=== PATIENT | female | born 1950 | race Caucasian/White ===

== ENCOUNTER → 2017-04-01 | Outpatient (CLI) | payer MEDICARE, BC ==
--- NOTE | 2017-04-02 08:09 | XR ---
EXAMINATION TYPE: XR chest 2V DATE OF EXAM: 04/01/2017 9:30 AM COMPARISON: NONE HISTORY: Shortness of breath TECHNIQUE: Frontal and lateral views of the chest are obtained. FINDINGS: Scattered senescent parenchymal changes noted. Hyperinflation compatible with COPD. No evidence for infiltrate. No evidence for atelectasis. Heart size is stable. Mediastinal structures are stable and grossly unremarkable. No evidence for hilar prominence. Degenerative changes dorsal spine. IMPRESSION: 1. No evidence for acute pulmonary disease.
== END | disposition home or self-care (01) ==
LOC: RADXRYALE 09:17
PROVIDERS: ATTEND Internal Medicine
DX: R05 Cough (principal)
CPT/HCPCS: 71020

== ENCOUNTER → 2017-04-16 | Outpatient (CLI) | payer MEDICARE, BC ==
--- NOTE | 2017-04-16 13:32 | US ---
EXAMINATION TYPE: US abdomen complete DATE OF EXAM: 04/16/2017 8:14 AM COMPARISON: NONE CLINICAL HISTORY: R10.84 Generalized abdominal pain. Palpable superior umbilicus area that the patien t has had for over 10 years, 2012 MRI questioned possible lymph node EXAM MEASUREMENTS: Liver Length: 15.2 cm Gallbladder Wall: 0.2 cm CBD: 0.5 cm Spleen: 9.1 cm Right Kidney: 9.4 x 4.4 x 4.9 cm Left Kidney: 10.5 x 4.3 x 5.1 cm Pancreas: wnl Liver: wnl Gallbladder: wnl Evidence for sonographic Atkins's sign: no CBD: wnl Spleen: wnl Right Kidney: wnl Left Kidney: wnl Upper IVC: wnl Abd Aorta: wnl scanned area of concern, tech could not appreciate area felt by patient, no obvious abnormality see n. Tech did review 2011 MRI and went back in to scan and found nothing additional. The liver is homogenous. The intrahepatic portion of the IVC and proximal abdominal aorta are within normal limits. There is no evidence of cholelithiasis. Common bile duct is unremarkable. The visu alized portions of the pancreas are homogenous. The spleen is unremarkable. Kidneys are symmetric a nd free of hydronephrosis. No renal lesions are seen. IMPRESSION: No abnormalities evident, consider CT with overlying marker
== END | disposition home or self-care (01) ==
LOC: RADUSWWP 08:12
PROVIDERS: ATTEND Internal Medicine
DX: R10.84 Generalized abdominal pain (principal)
CPT/HCPCS: 76700

== ENCOUNTER → 2018-01-21 | Outpatient (CLI) | payer MEDICARE, BC ==
--- NOTE | 2018-01-21 09:21 | US ---
EXAMINATION TYPE: US abdomen complete DATE OF EXAM: 01/21/2018 COMPARISON: US, MRI CLINICAL HISTORY: R10.31 rt lower quad pain. Pt states epigastric and chest pain that has now subside d, recent cardiac work-up done and pt states wnl EXAM MEASUREMENTS: Liver Length: 13.9 cm Gallbladder Wall: 0.2 cm CBD: 0.3 cm Spleen: 9.5 cm Right Kidney: 10.3 x 4.4 x 4.8 cm Left Kidney: 10.7 x 4.9 x 4.7 cm Pancreas: wnl, tail obscured by overlying bowel gas Liver: wnl Gallbladder: wnl Evidence for sonographic Atkins's sign: No CBD: wnl Spleen: wnl Right Kidney: 4mm echogenic focus lower pole, no evidence of hydro Left Kidney: wnl Upper IVC: wnl Abd Aorta: wnl The liver is homogenous. The intrahepatic portion of the IVC and proximal abdominal aorta are within normal limits. There is no evidence of cholelithiasis. Common bile duct is unremarkable. The visu alized portions of the pancreas are homogenous. The spleen is unremarkable. Kidneys are symmetric a nd free of hydronephrosis. No renal lesions are seen. IMPRESSION: 1. Nonobstructing 4 mm right lower pole renal calculus. 2. No sonographic event evidence of cholelithiasis or acute cholecystitis.
== END | disposition home or self-care (01) ==
LOC: RADUSWWP 08:08
PROVIDERS: ATTEND Internal Medicine
DX: N20.0 Calculus of kidney (principal)
CPT/HCPCS: 76700

== ENCOUNTER → 2018-07-15 | Outpatient (CLI) | payer MEDICARE, BC ==
--- NOTE | 2018-07-15 15:19 | XR ---
EXAMINATION TYPE: XR knee complete LT DATE OF EXAM: 07/15/2018 CLINICAL HISTORY: Pain in left knee going down left leg TECHNIQUE: Three views of the left knee are obtained. COMPARISON: None. FINDINGS: There is no acute fracture/dislocation evident in left knee. Mild tricompartment joint spa ce loss is present. No significant spurring is seen. The overlying soft tissue appears unremarkable. IMPRESSION: As above.
--- NOTE | 2018-07-15 15:20 | XR ---
EXAMINATION TYPE: XR lumbosacral spine min 4V DATE OF EXAM: 07/15/2018 CLINICAL HISTORY: Left-sided sciatica per order. Pain down left leg when sitting. TECHNIQUE: Frontal, lateral, and oblique images of the lumbar spine are obtained. COMPARISON: None FINDINGS: There are 5 lumbar type vertebral bodies identified. The lumbar spine shows satisfactory alignment without evidence of acute fracture or dislocation. Moderate disc space narrowing with vacuu m disc phenomenon L5-S1 level is present otherwise vertebral body heights and disk space heights are within normal limits. The oblique images appear within normal limits. Vascular calcification overly ing abdominal aorta is seen mid to lower lumbar levels IMPRESSION: Moderate disc space narrowing L5-S1 level.
== END | disposition home or self-care (01) ==
LOC: RADXRYALE 14:54
PROVIDERS: ATTEND Internal Medicine
DX: M48.07 Spinal stenosis, lumbosacral region (principal); M25.562 Pain in left knee
CPT/HCPCS: 72110

== ENCOUNTER → 2018-10-22 | Outpatient (CLI) | payer MEDICARE, BC ==
--- NOTE | 2018-10-24 12:26 | MM ---
Reason for exam: screening (asymptomatic). Last mammogram was performed 1 year and 2 months ago. History: Patient is postmenopausal and has history of breast cancer at age 57. Family history of breast cancer in paternal aunt. Excisional biopsy of the left breast, August 2008. Malignant core biopsy, July 2008. Excisional biopsy of the left breast, 1979. Took hormonal contraceptives for 11 years. Physical Findings: A clinical breast exam by your physician is recommended on an annual basis and results should be correlated with mammographic findings. MG 3D Screening Mammo W/Cad Bilateral CC and MLO view(s) were taken. Prior study comparison: September 04, 2017, mammogram, performed at [facility]. March 11, 2012, CAD bilateral diagnostic mammogram. February 19, 2011, CAD bilateral diagnostic mammogram. There are three left breast masses. Two are middle depth in the central upper left breast and the third is upper outer quadrant middle depth. Right lateral distortion. Surgical history will be confirmed. ASSESSMENT: Incomplete: need additional imaging evaluation, BI-RAD 0 RECOMMENDATION: Special view mammogram of the left breast. (right, if no prior surgical history) If lesion persists on supplemental views, image directed ultrasound is recommended. [facility] will attempt to contact patient to return for supplemental views and ultrasound if indicated.
== END | disposition home or self-care (01) ==
LOC: RADMAMWWP 10:56
PROVIDERS: ATTEND Internal Medicine
DX: Z12.31 Encounter for screening mammogram for malignant neoplasm of breast (principal)
CPT/HCPCS: 77063; 77067

== ENCOUNTER → 2018-11-13 | Outpatient (CLI) | payer MEDICARE, BC ==
--- NOTE | 2018-11-13 14:04 | MM ---
Reason for exam: additional evaluation requested from abnormal screening. Last mammogram was performed 1 month ago. History: Patient is postmenopausal and has history of breast cancer at age 57. Family history of breast cancer in paternal aunt at age 34, breast cancer in sister at age 66, and breast cancer in maternal cousin at age 50. Excisional biopsy of the left breast, August 2008. Malignant core biopsy, July 2008. Excisional biopsy of the left breast, 1979. Took hormonal contraceptives for 11 years. Physical Findings: Nurse did not find any significant physical abnormalities on exam. MG 3D Work Up W/Cad LT Spot compression CC, spot compression MLO, and LM view(s) were taken of the left breast. Prior study comparison: October 22, 2018, bilateral MG 3d screening mammo w/cad. September 04, 2017, mammogram, performed at [facility]. Nodularity upper outer quadrant left breast, ultrasound recommended. These results were verbally communicated with the patient and result sheet given to the patient on 11/13/18. ASSESSMENT: Incomplete: need additional imaging evaluation, BI-RAD 0 RECOMMENDATION: Ultrasound of the left breast.
--- NOTE | 2018-11-13 14:06 | USB ---
Reason for exam: additional evaluation requested from abnormal screening. History: Patient is postmenopausal and has history of breast cancer at age 57. Family history of breast cancer in paternal aunt at age 34, breast cancer in sister at age 66, and breast cancer in maternal cousin at age 50. Excisional biopsy of the left breast, August 2008. Malignant core biopsy, July 2008. Excisional biopsy of the left breast, 1979. Took hormonal contraceptives for 11 years. US Breast Workup Limited LT Left limited breast ultrasound including focal area of concern, retroareolar and axilla demonstrates a 1.0 x 0.5 x 0.3cm oval, mixed cluster at 12 o'clock, a 0.4 x 0.4 x 0.3cm oval, mixed lesion at 2 o'clock, duct ectasia at the posterior nipple and a 1.3 x 0.6 x 0.7cm oval axilla node. These results were verbally communicated with the patient and result sheet given to the patient on 11/13/18. ASSESSMENT: Benign, BI-RAD 2 RECOMMENDATION: Return to routine screening mammogram schedule for both breasts.
== END ==
LOC: RADMAMWWP 10:09
PROVIDERS: ATTEND Internal Medicine
DX: R92.8 Other abnormal and inconclusive findings on diagnostic imaging of breast (principal)
CPT/HCPCS: 77065; 76642; G0279; 77061

== ENCOUNTER → 2019-05-14 | Outpatient (CLI) | payer MEDICARE, BC ==
--- NOTE | 2019-05-14 09:49 | XR ---
EXAMINATION TYPE: XR chest 2V DATE OF EXAM: 05/14/2019 COMPARISON: 04/01/2017 TECHNIQUE: PA and lateral views submitted. HISTORY: Cough FINDINGS: The lungs are clear and there is no pneumothorax, pleural effusion, or focal pneumonia. Prominence the right suprahilar region could be on the basis of the aorta. Hypertrophic and degenerative change of the spine. Coarsened interstitium can be seen with bronchitis or chronic interstitial lung disease . IMPRESSION: 1. Coarsened interstitium correlate for bronchitis or chronic interstitial lung disease. Interstitial pneumonitis also a consideration. 2. There remains mild prominence of the region of the ascending aorta. Aneurysm in the differential d iagnosis consider follow-up CT scan of the chest..
== END | disposition home or self-care (01) ==
LOC: RADXRYALE 08:55
PROVIDERS: ATTEND Internal Medicine
DX: J20.9 Acute bronchitis, unspecified (principal)
CPT/HCPCS: 71046

== ENCOUNTER → 2019-12-10 | Outpatient (CLI) | payer MEDICARE, BC ==
--- NOTE | 2019-12-11 11:15 | MM ---
Reason for exam: screening (asymptomatic). Last mammogram was performed 1 year and 1 month ago. History: Patient is postmenopausal and has history of breast cancer at age 57. Family history of breast cancer in paternal aunt at age 34, breast cancer in sister at age 66, and breast cancer in maternal cousin at age 50. Excisional biopsy of the left breast, August 2008. Malignant core biopsy, July 2008. Excisional biopsy of the left breast, 1979. Took hormonal contraceptives for 11 years. Physical Findings: A clinical breast exam by your physician is recommended on an annual basis and results should be correlated with mammographic findings. MG 3D Screening Mammo W/Cad Bilateral CC and MLO view(s) were taken. Prior study comparison: November 13, 2018, left breast MG 3d work up w/cad LT. October 22, 2018, bilateral MG 3d screening mammo w/cad. There are scattered fibroglandular densities. Finding: There are typically benign circumscribed round oval stable masses in both breasts. No suspicious abnormality. No significant changes in finding since November 13, 2018 and October 22, 2018. ASSESSMENT: Benign, BI-RAD 2 RECOMMENDATION: Routine screening mammogram of both breasts in 1 year.
== END | disposition home or self-care (01) ==
LOC: RADMAMWWP 09:39
PROVIDERS: ATTEND Internal Medicine
DX: Z12.31 Encounter for screening mammogram for malignant neoplasm of breast (principal)
CPT/HCPCS: 77063; 77067

== ENCOUNTER → 2021-01-18 | Outpatient (CLI) | payer MEDICARE, BC ==
--- NOTE | 2021-01-20 14:01 | MM ---
Reason for exam: screening (asymptomatic). Last mammogram was performed 1 year and 1 month ago. History: Patient is postmenopausal and has history of breast cancer at age 57. Family history of breast cancer in paternal aunt at age 34, breast cancer in sister at age 66, and breast cancer in maternal cousin at age 50. Excisional biopsy of the left breast, August 2008. Malignant core biopsy, July 2008. Excisional biopsy of the left breast, 1979. Took hormonal contraceptives for 11 years. Physical Findings: A clinical breast exam by your physician is recommended on an annual basis and results should be correlated with mammographic findings. MG 3D Screening Mammo W/Cad Bilateral CC and MLO view(s) were taken. Prior study comparison: December 10, 2019, bilateral MG 3d screening mammo w/cad. November 13, 2018, left breast MG 3d work up w/cad LT. There are scattered fibroglandular densities. There is chronic nodularity in the left breast. No significant changes when compared with prior studies. ASSESSMENT: Benign, BI-RAD 2 RECOMMENDATION: Routine screening mammogram of both breasts in 1 year.
== END | disposition home or self-care (01) ==
LOC: RADMAMWWP 09:44
PROVIDERS: ATTEND Internal Medicine
DX: Z12.31 Encounter for screening mammogram for malignant neoplasm of breast (principal)
CPT/HCPCS: 77063; 77067

== ENCOUNTER → 2022-01-23 | Outpatient (CLI) | payer MEDICARE, BC ==
--- NOTE | 2022-01-24 08:42 | MM ---
Reason for exam: screening (asymptomatic). Last mammogram was performed 1 year ago. History: Patient is postmenopausal. Family history of breast cancer in paternal aunt at age 34, breast cancer in sister at age 66, and breast cancer in maternal cousin at age 50. Excisional biopsy of the left breast, August 2008. Core biopsy, July 2008. Excisional biopsy of the left breast, 1979. Took hormonal contraceptives for 11 years. Physical Findings: A clinical breast exam by your physician is recommended on an annual basis and results should be correlated with mammographic findings. MG 3D Screening Mammo W/Cad Bilateral CC and MLO view(s) were taken. Prior study comparison: January 18, 2021, bilateral MG 3d screening mammo w/cad. December 10, 2019, bilateral MG 3d screening mammo w/cad. The breast tissue is heterogeneously dense. This may lower the sensitivity of mammography. There is chronic nodularity in the left breast. No significant changes when compared with prior studies. ASSESSMENT: Benign, BI-RAD 2 RECOMMENDATION: Routine screening mammogram of both breasts in 1 year. Manage patient on a clinical basis.
== END | disposition home or self-care (01) ==
LOC: RADMAMWWP 09:32
PROVIDERS: ATTEND Internal Medicine
DX: Z12.31 Encounter for screening mammogram for malignant neoplasm of breast (principal); Z78.0 Asymptomatic menopausal state; Z80.3 Family history of malignant neoplasm of breast
CPT/HCPCS: 77063; 77067

== ENCOUNTER → 2024-03-03 | Outpatient (CLI) | payer MEDICARE, BC ==
--- NOTE | 2024-03-04 15:23 | MM ---
Reason for Exam: Screening (asymptomatic). Last mammogram was performed 1 year(s) and 1 month(s) ago. Patient History: Menarche at age 15. First Full-Term at age 18. Postmenopausal. Patient used Hormonal Contraceptives for 11 years. 07/2008, Core Biopsy. 1979, Excisional Biopsy on the Left side. 08/2008, Excisional Biopsy on the Left side. Maternal cousin had breast cancer, age 50. Paternal aunt had breast cancer, age 34. Sister had breast cancer, age 66. Risk Values: Nadia 5 year model risk: 4.5%. NCI Lifetime model risk: 10.7%. Prior Study Comparison: 01/18/2021 Bilateral Screening Mammogram, LOCATED [facility]IN [facility]. 01/23/2022 Bilateral Screening Mammogram, LOC[facility]IN [facility]. 01/31/2023 Bilateral MG 3D screening mammo w/cad, LOCATED [facility]. Tissue Density: There are scattered areas of fibroglandular density. Findings: Analyzed By CAD. There is no suspicious group of microcalcifications or new suspicious mass in either breast. Overall Assessment: Benign, BI-RAD 2 Management: Screening Mammogram of both breasts in 1 year. . Patient should continue monthly self-breast exams. A clinical breast exam by your physician is recommended on an annual basis. This exam should not preclude additional follow-up of suspicious palpable abnormalities. Note on Nadia scores and lifetime risk: 1. A Nadia score greater than 3% is considered moderate risk. If this is the case, consider specialist referral to assess eligibility for a risk reducing agent. 2. If overall lifetime risk for the development of breast cancer is 20% or higher, the patient may qualify for future screening with alternating mammogram and breast MRI. Electronically signed and approved by: Cam Appiah M.D. Radiologis
== END | disposition home or self-care (01) ==
LOC: RADMAMWWP 09:45
PROVIDERS: ATTEND Internal Medicine
DX: Z12.31 Encounter for screening mammogram for malignant neoplasm of breast (principal); Z78.0 Asymptomatic menopausal state; Z80.3 Family history of malignant neoplasm of breast
CPT/HCPCS: 77063; 77067

== ENCOUNTER → 2025-03-24 | Outpatient (CLI) | payer MEDICARE, BC ==
--- NOTE | 2025-03-24 12:08 | MM ---
Reason for Exam: Screening (asymptomatic). Last screening mammogram was performed 12 month(s) ago. Patient History: Menarche at age 15. First Full-Term at age 18. Postmenopausal. Patient used Hormonal Contraceptives for 11 years. 07/2008, Core Biopsy. 1979, Excisional Biopsy on the Left side. 08/2008, Excisional Biopsy on the Left side. Maternal cousin had breast cancer, age 50. Paternal aunt had breast cancer, age 34. Sister had breast cancer, age 66. Risk Values: Nadia 5 year model risk: 4.5%. NCI Lifetime model risk: 10.1%. Prior Study Comparison: 01/23/2022 Bilateral Screening Mammogram, [facility]. 01/31/2023 Bilateral MG 3D screening mammo w/cad, [facility]. 03/03/2024 Bilateral MG 3D screening mammo w/cad, [facility]. Tissue Density: The breasts are heterogeneously dense, which may obscure small masses. Findings: Analyzed By CAD. Benign-appearing bilateral axillary lymph nodes are redemonstrated. There are a few tiny benign-appearing round calcifications bilaterally redemonstrated. Stable group of dystrophic calcifications anteriorly in the left breast is noted There is no suspicious new group of microcalcifications or new suspicious mass in either breast. Overall Assessment: Benign, BI-RAD 2 Management: Screening Mammogram of both breasts in 1 year. . Patient should continue monthly self-breast exams. A clinical breast exam by your physician is recommended on an annual basis. This exam should not preclude additional follow-up of suspicious palpable abnormalities. Note on Nadia scores and lifetime risk: 1. A Nadia score greater than 3% is considered moderate risk. If this is the case, consider specialist referral to assess eligibility for a risk reducing agent. 2. If overall lifetime risk for the development of breast cancer is 20% or higher, the patient may qualify for future screening with alternating mammogram and breast MRI. [facility], , 03/24/2025 12:04 PM. Electronically signed and approved by: Sergio Carney M.D.
--- NOTE | 2025-03-24 13:08 | BD ---
EXAMINATION TYPE: Axial Bone Density DATE OF EXAM: 03/24/2025 CLINICAL HISTORY: 74 years old Female. ICD-10 CODE: N95.8 OTHER SPECIFIED MENOPAUSE , Additional His tory: Height: 62 Weight: 184 FRAX RISK QUESTIONS: Family History (Parent hip fracture): no History of Fracture in Adulthood: no Secondary Osteoporosis: no RISK FACTORS HISTORY OF: Surgery to Spine/Hip(right/left)/Wrist (right/left): no MEDICATIONS: Thyroid Medications: no Osteoporosis Medications: no EXAM MEASUREMENTS: Bone mineral densitometry was performed using the General Assembly System. Bone mineral density as measured about the Lumbar spine is: ----- L1-L4(G/cm2): 0.986 T Score Values are as follows: ----- L1: -1.7 ----- L2: -1.7 ----- L3: -1.3 ----- L4: -1.8 ----- L1-L4: -1.6 Z Score Values are as follows: ----- L1: -0.6 ----- L2: -0.6 ----- L3: -0.2 ----- L4: -0.7 ----- L1-L4: -0.5 Bone mineral density baseline Bone mineral density about the R hip (g/cm2): 0.850 Bone mineral density about the L hip (g/cm2): 0.898 T Score values are as follows: -----R Neck: -2.0 -----L Neck: -1.7 -----R Total: -1.3 -----L Total: -0.9 Z Score values are as follows: -----R Neck: -0.5 -----L Neck: -0.2 -----R Total: 0.0 -----L Total: 0.4 Bone mineral density baseline FRAX%s: The graph provided illustrates a 12.1% chance for a major osteoporotic fx and a 2.9% chance f or the hips probability for fx in 10 years time. IMPRESSION: Osteopenia (T Score between -2.5 and -1). There is slightly increased risk of fracture and the patient may be considered for treatment. Re-Screen 2-5 years. NOTE: T-SCORE=SD OF THE YOUNG ADULT MEAN. [facility], , 03/24/2025 1:05 PM
== END | disposition home or self-care (01) ==
LOC: RADBDWWP 10:19
PROVIDERS: ATTEND Internal Medicine
DX: Z12.31 Encounter for screening mammogram for malignant neoplasm of breast (principal); R92.333 Mammographic heterogeneous density, bilateral breasts; M85.89 Other specified disorders of bone density and structure, multiple sites; Z78.0 Asymptomatic menopausal state; Z80.3 Family history of malignant neoplasm of breast
CPT/HCPCS: 77063; 77067; 77080